=== PATIENT | male | born 1950 | race Caucasian/White ===

== ENCOUNTER 2021-01-10 21:35 | Emergency (ER) | payer MEDICARE, SELFPAY ==
[2021-01-10 21:50] VITALS: BP 141/90; PULSE 73; RESP 15; TEMP 36; O2SAT 95; BMI 30.5
--- NOTE | 2021-01-10 22:01 | DI.RAD.S_ITS ---
PROCEDURE: XR FINGER RT MIN 2V INDICATIONS: smashed right thumb between boat and dock TECHNIQUE: Three views of the thumb obtained. COMPARISON: None. FINDINGS: Bones: Mildly displaced fracture of the distal tuft of the 1st distal phalanx. No suspicious bony lesions. Soft tissues: No suspicious soft tissue calcifications. Soft tissue irregularity at the distal aspect of the thumb is compatible with a soft tissue laceration. No radiopaque foreign body. IMPRESSION: Small mildly displaced fracture at the distal tuft of the 1st distal phalanx with overlying soft tissue laceration. Dictated by: Camden Vasquez M.D. on 01/10/2021 at 22:32 Approved by: Camden Vasquez M.D. on 01/10/2021 at 22:34
--- NOTE | 2021-01-11 01:04 | PC.NURSE ---
Pt has bleeding,swelling of thumb after smashing it between boat and dock. pts nail is almost completely coming off his finger.
[2021-01-11] MEDS: TET,DIPH,PERTUSS(ACELL),VAC/PF 0.5 ML SYRINGE IM (01:11)
[2021-01-11 02:14] VITALS: BP 150/94; PULSE 74; O2SAT 96
[2021-01-11] MEDS: OXYCODONE/APAP 5/325 PREPACK 1 BOTTLE MISC (03:28)
[2021-01-11] MEDS: BACITRACIN OINT 0.9 GM PCKT 1 APPLIC TOP (03:28)
[2021-01-11] MEDS: IBUPROFEN 400 MG TABLET PO (03:29)
[2021-01-11] MEDS: cephALEXin 250 MG CAPSULE 500 MG PO (03:29)
[2021-01-11] MEDS: OXYCODONE/ACETAMINOPHEN 5/325 TABLET 1 TAB PO (03:30)
--- NOTE | 2021-01-11 07:47 | ED_ITS ---
HPI - Wound/Laceration General Chief Complaint: Wound/Laceration Stated Complaint: NAIL IS ALMOST OF RIGHT HAND THUMB SMASHED IT Time Seen by Provider: 01/11/21 03:14 Source: patient Mode of arrival: Ambulatory Limitations: no limitations History of Present Illness HPI narrative: 70-year-old gentleman with a history of hyperlipidemia, diabetes, hypertension, hypothyroidism and coronary artery disease. He slammed his right thumb between a truck and truck bed and has completely avulsed the nail with the distal portion of the fingernail still attached to the nail bed. He is having a moderate amount of pain. Related Data Previous Rx's Medication Instructions Recorded cephalexin 500 mg capsule 500 mg PO TID 5 Days #15 cap 01/11/21 Allergies Allergy/AdvReac Type Severity Reaction Status Date / Time No Known Drug Allergies Allergy Verified 01/10/21 21:55 Review of Systems Review of Systems Narrative: Pertinent positive and negative findings as per HPI Remainder of review of systems is otherwise unremarkable for Constitutional: Fevers, chills, weakness ENT: No sore throat, neck pain, ear pain CV: Chest pain, palpitations, Respiratory: Cough, wheeze, dyspnea GI: Nausea, vomiting, diarrhea, : Dysuria, hematuria, Patient History Medical History (Updated 01/11/21 @ 07:49 by Ramya Tanner MD) Diabetes Hyperlipidemia Hypertension Hypothyroidism (acquired) Social History Smoking Status: Unknown if ever smoked Smoking Status: Unknown if ever smoked alcohol intake frequency: holidays/special occasions only Substance Use Type: does not use and marijuana Exam Narrative Exam Narrative: General: Alert appropriate in no acute distress Respiratory: Able to speak in full sentences, no obvious respiratory distress Skin: No obvious rashes, warm and dry Neurologic: Grossly intact no obvious asymmetries or abnormalities Psych: appropriate insight and affect, cooperative Extremity: Nail of the right thumb almost completely avulsed, bleeding is controlled at the nail bed. No obviously explodes to bone. Initial Vital Signs Initial Vital Signs: Vital Signs Temperature 96.8 F L 01/10/21 21:50 Pulse Rate 73 01/10/21 21:50 Respiratory Rate 15 01/10/21 21:50 Blood Pressure 141/90 H 01/10/21 21:50 Pulse Oximetry 95 01/10/21 21:50 [place] [facility] [place] Procedure: Right thumb nail removal Technique/Description of procedure performed: 3/4 of the nail is avulsed from the nail bed out after a crush injury Bleeding is controlled 4 cc of 1% lidocaine with bicarb was injected about the end of the finger Using blunt dissection the remainder of the nail was removed. There is a tuft fracture to the distal phalanx. Bone is not overtly exposed on exam Bleeding was controlled and no additional suturing or hemostasis techniques were required Bacitracin is applied to the tip of the thumb the wound is dressed Patient tolerated the procedure well Course Orders Ordered: Discontinued Medications Bacitracin (Bacitracin Oint 0.9 Gm Pckt) 1 applic TOP NOW ONE Stop: 01/11/21 03:19 Last Admin: 01/11/21 03:28 Dose: 1 applic Documented by: [email or web address] Cephalexin HCl (Cephalexin 250 Mg Capsule) 500 mg PO NOW ONE Stop: 01/11/21 03:21 Last Admin: 01/11/21 03:29 Dose: 500 mg Documented by: [email or web address] Diphtheria/Tetanus/Acell Pertussis (Tet,Diph,Pertuss(Acell),Vac/Pf 0.5 Ml Syringe) 0.5 ml IM .ONCE ONE Stop: 01/11/21 01:06 Last Admin: 01/11/21 01:11 Dose: 0.5 ml Documented by: ALICE Ibuprofen (Ibuprofen 400 Mg Tablet) 400 mg PO NOW ONE Stop: 01/11/21 03:19 Last Admin: 01/11/21 03:29 Dose: 400 mg Documented by: [email or web address] Oxycodone/Acetaminophen (Oxycodone/Acetaminophen 5/325 Tablet) 1 tab PO NOW ONE Stop: 01/11/21 03:19 Last Admin: 01/11/21 03:30 Dose: 1 tab Documented by: [email or web address] Oxycodone/Acetaminophen (Oxycodone/Apap 5/325 Prepack) 1 bottle MISC SEEINSTR ONE Stop: 01/11/21 03:19 Last Admin: 01/11/21 03:28 Dose: 1 bottle Documented by: [email or web address] Vital Signs Vital signs: Vital Signs - 8 hr 01/11/21 02:14 Pulse Rate 74 Blood Pressure 150/94 H Pulse Oximetry 96 MDM - Wound/Laceration Imaging Data X-ray hand: Radiologist's Impression: FINDINGS: Bones: Mildly displaced fracture of the distal tuft of the 1st distal phalanx. No suspicious bony lesions. Soft tissues: No suspicious soft tissue calcifications. Soft tissue irregularity at the distal aspect of the thumb is compatible with a soft tissue laceration. No radiopaque foreign body. IMPRESSION: Small mildly displaced fracture at the distal tuft of the 1st distal phalanx with overlying soft tissue laceration. Dictated by: Camden Vasquez M.D. on 01/10/2021 at 22:32 MDM Narrative Medical decision making narrative: 70-year-old gentleman who caught his right thumb between his truck and truck bed with a minor crush injury to the distal phalanx. Remainder of partially avulsed nail is removed. He is placed on antibiotics in light of the probable open fracture with the tuft fracture of the distal phalanx. Clearly reviewed signs and symptoms of infection including deep infection and osteomyelitis. Questions are answered and he is safe for home discharge Discharge Plan Departure Patient Disposition: Home Clinical Impression: Open fracture of tuft of distal phalanx of right thumb Avulsed fingernail Qualifiers: Encounter type: initial encounter Qualified Code(s): S61.309A - Unspecified open wound of unspecified finger with damage to nail, initial encounter Instructions: DI for Nail Avulsion Injury Activity Restrictions/Additional Instructions: Thank you for coming in today You have a small fracture at the very tip of your thumb bone. Because the nail was also popped off this fracture is technically exposed. The remainder of the nail was removed without any difficulty and I suspect that it is going to grow back with relatively little damage. Keep antibiotic ointment on the base of the nail bed until it is no longer tender or bleeding or sticking to any of the bandages. You do need to complete the 5 day course of Keflex to prevent infection Using 400 mg of ibuprofen (2 [id number] pills) and 1 Tylenol every 6 hours can be very helpful in controlling pain. Using 2 ibuprofen and 1 Percocet for severe pain over the next 1-2 days would also be appropriate I hope you heal quickly Prescriptions: New cephalexin 500 mg capsule 500 mg PO TID 5 Days Qty: 15 RF: 0
== END 2021-01-11 03:45 | disposition home or self-care (01) ==
PROVIDERS: Emergency Provider Emergency Medicine
DX: S62.521A Displaced fracture of distal phalanx of right thumb, initial encounter for closed fracture (principal); S61.309A Unspecified open wound of unspecified finger with damage to nail, initial encounter; W23.0XXA Caught, crushed, jammed, or pinched between moving objects, initial encounter; Z23 Encounter for immunization
CPT/HCPCS: 11730; 73140; 90471; 99283; 90715